=== PATIENT | male | born 1945 | race Caucasian/White ===

== ENCOUNTER 2023-03-03 08:39 | Outpatient (CLI) | payer MEDICARE, BC | END 2023-03-03 08:40 | disposition home or self-care (01) | LOC: CSHULT 08:39 | PROVIDERS: ATTEND Urology | DX: N43.3 Hydrocele, unspecified (principal); R39.14 Feeling of incomplete bladder emptying; N50.9 Disorder of male genital organs, unspecified; N44.2 Benign cyst of testis; N13.30 Unspecified hydronephrosis; R39.198 Other difficulties with micturition | CPT/HCPCS: 76770; 76870; 76999; 93976 ==